=== PATIENT | male | born 2000 | race Caucasian/White ===

== ENCOUNTER 2022-01-26 16:21 | Emergency (ER) | payer SELFPAY ==
[~2022-01-26] VITALS: Ht 182.9 cm; Wt 74.8 kg
[2022-01-26] MEDS ORDERED: IBUP-1955 PO (17:36)
--- NOTE | 2022-01-26 17:41 | NUR ---
Patient discharged to home in stable condition. Written and verbal after care instructions given. Patient verbalizes understanding of instructions. Stressed follow up or return to ER for worsening s/s.
== END 2022-01-26 17:42 | disposition home or self-care (01) ==
LOC: ER 16:40
DX: M79.644 Pain in right finger(s) (principal); S60.412A Abrasion of right middle finger, initial encounter; V18.9XXA Unspecified pedal cyclist injured in noncollision transport accident in traffic accident, initial encounter; Y93.29 Activity, other involving ice and snow; Y92.89 Other specified places as the place of occurrence of the external cause
CPT/HCPCS: 73130; A4663

== ENCOUNTER 2022-02-11 20:45 | Emergency (ER) | payer SELFPAY ==
[~2022-02-11] VITALS: Ht 175.3 cm; Wt 68.0 kg
[~2022-02-11 20:45] MED LIST: IBUP-1955 PO
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
--- NOTE | 2022-02-11 21:57 | NUR ---
Dr. Wesley on bedside for MSE.
--- NOTE | 2022-02-11 22:25 | NUR ---
Telephone call to radiology dept./Kasey and informed regarding order for x-ray.
[2022-02-11] MEDS ORDERED: HYDR-3972 PO (23:08)
--- NOTE | 2022-02-11 23:22 | NUR ---
Patient discharged to home in stable condition. Written and verbal after care instructions given. Patient verbalizes understanding of instructions. Stressed follow up or return to ER for worsening s/s. Patient walked out with steady gait and all belongings with patient.
[2022-02-11 23:25] VITALS: BP 128/75
== END 2022-02-11 23:22 | disposition home or self-care (01) ==
LOC: ER 20:52
DX: S90.212A Contusion of left great toe with damage to nail, initial encounter (principal); V29.99XA Rider (driver) (passenger) of other motorcycle injured in unspecified traffic accident, initial encounter; Y92.89 Other specified places as the place of occurrence of the external cause
CPT/HCPCS: 11740; 73660; A4663